=== PATIENT | male | born 1990 | race Caucasian/White ===

== ENCOUNTER 2018-01-30 07:23 | Outpatient (CLI) | payer OTHER ==
--- NOTE | 2018-01-30 11:27 | CT Report ---
NONCONTRAST CT SCAN ABDOMEN AND PELVIS: 01/30/2018 HISTORY: Recurrent rectal pain for 14 years. COMPARISON: None. TECHNIQUE: Axial noncontrast images of the abdomen and pelvis with multiplanar reconstructions. FINDINGS: Clear lung bases. Negative liver, spleen, kidneys, pancreas, and adrenal glands for the noncontrast technique. No free fluid, adenopathy, free air, or abnormal collections. The urinary bladder is unremarkable. No abnormality of the pelvic organs detected. Perirectal fat planes appear normal. Negative bony structures. Nonspecific bowel gas pattern without evidence of ileus, obstruction or free air. IMPRESSION: NEGATIVE NONCONTRAST CT SCAN ABDOMEN AND PELVIS. AN EXPLANATION FOR PERIRECTAL PAIN IS NOT IDENTIFIED. SUGGEST CLINICAL CORRELATION. CT DOSE REDUCTION STATEMENT In accordance with CT protocol optimization, one or more of the following dose reduction techniques were utilized for this exam: automated exposure control, adjustment of mA and/or KV based on patient size, or use of iterative reconstructive technique. TD: 01/30/2018 11:27
== END 2018-01-30 07:24 | disposition home or self-care (01) ==
LOC: DI 07:23
PROVIDERS: ATTEND Specialist
DX: R10.2 Pelvic and perineal pain (principal)
CPT/HCPCS: 74176